=== PATIENT | male | born 1980 | race Hispanic/Latino ===

== ENCOUNTER 2019-07-26 19:56 | Emergency (ER) | payer SELFPAY ==
[2019-07-26 21:00] LABS: Urine Blood 1+ (NEG); Urine Glucose NEGATIVE (NEG); Urine Protein 2+ (NEG); Urine Specific Gravity 1.025 (1.005-1.030)
[2019-07-26 21:05] LABS: Urine Bacteria 20-50 /HPF (NONE SEEN); Urine Culture Reflex Order REFLEXED; Urine Mucus 1+ /HPF (NONE SEEN); Urine RBC 20-50 /HPF (NONE SEEN)
[2019-07-26] MEDS ORDERED: CEFTRIAXONE 250 MG/VIAL ONE (21:39)
[2019-07-26] MEDS ORDERED: AZITHROMYCIN 250 MG TAB ONE (21:39)
[2019-07-26] MEDS ORDERED: WATER FOR INJ,STERILE 10 ML ONE (21:40)
--- NOTE | 2019-07-26 21:54 | ER ---
Nurse's Notes [facility] Name: Liam Snell Age: 39 yrs Sex: Male : 1980 Arrival Date: 07/26/2019 Time: 19:58 Bed 27 Private MD: Diagnosis: Urinary tract infection, site not specified Presentation: 07/26 20:09 Presenting complaint: Patient states: Since last night, pain with urination, swelling lp1 to side of penis;. Transition of care: patient was not received from another setting of care. Onset of symptoms was July 26, 2019. Risk Assessment: Do you want to hurt yourself or someone else? Patient reports no desire to harm self or others. Initial Sepsis Screen: Does the patient meet any 2 criteria? No. Patient's initial sepsis screen is negative. Does the patient have a suspected source of infection? No. Patient's initial sepsis screen is negative. Care prior to arrival: None. 20:09 Method Of Arrival: Ambulatory lp1 20:09 Acuity: AGUSTÍN 4 lp1 Historical: - Allergies: 20:12 No Known Allergies; lp1 - Home Meds: 20:12 [place] Oral [Active]; Soma Oral [Active]; lp1 - PMHx: 20:12 "esophagus problems"; Depression; Back pain; lp1 - PSHx: 20:12 wrist surgery; lp1 - Immunization history:: Adult Immunizations up to date. - Social history:: Smoking status: Patient uses tobacco products, smokes one-half pack cigarettes per day. - Ebola Screening: : No symptoms or risks identified at this time. Screenin:37 Abuse screen: Denies threats or abuse. Nutritional screening: No deficits noted. sr5 Tuberculosis screening: No symptoms or risk factors identified. Fall Risk None identified. Assessment: 20:37 General: Appears in no apparent distress. Behavior is calm, cooperative. Pain: sr5 Complains of pain in groin. Neuro: No deficits noted. Cardiovascular: No deficits noted. Respiratory: No deficits noted. GI: No deficits noted. : Reports burning with urination, discharge, red and raised area to right testicle, reports started today. EENT: No signs and/or symptoms were reported regarding the EENT system. Derm:. Musculoskeletal: No signs and/or symptoms reported regarding the musculoskeletal system. 21:40 Reassessment: Pt to ultrasound approx 2130. sr5 22:37 Reassessment: Upon discharge pt remains AA\\T\\Ox4, equal unlabored resp, skin warm/dry/nc, sr5 steady gait out of ER with family. Vital Signs: 20:12 BP 120 / 86; Pulse 98; Resp 18; Temp 98.1(O); Pulse Ox 100% on R/A; Weight 81.65 kg lp1 (R); Height 5 ft. 7 in. (170.18 cm); Pain 9/10; 22:37 BP 118 / 70; Pulse 87; Resp 18; Temp 98.1; Pulse Ox 100% on R/A; Pain 9/10; sr5 20:12 Body Mass Index 28.19 (81.65 kg, 170.18 cm) lp1 ED Course: 19:58 Patient arrived in ED. cl3 20:11 Triage completed. lp1 20:11 Arm band placed on. lp1 20:34 ReseckerAlex RN is Primary Nurse. sr5 20:37 Patient has correct armband on for positive identification. Bed in low position. Call sr5 light in reach. 20:44 Quin Benitez FNP-C is [facility]. kb 20:44 Shaun Ramirez MD is Attending Physician. kb 22:14 US Scrotum Testicles In Process Unspecified. EDMS 22:37 No provider procedures requiring assistance completed. Patient did not have IV access sr5 during this emergency room visit. Administered Medications: 22:06 Drug: Zithromax 1 grams Route: PO; sr5 22:38 Follow up: Response: No adverse reaction sr5 22:07 Drug: Rocephin (cefTRIAXone) 250 mg Route: IM; Site: right ventrogluteal; sr5 22:38 Follow up: Response: No adverse reaction sr5 Outcome: 21:53 Discharge ordered by . kb 22:37 Discharged to home ambulatory, with friend. sr5 22:37 Condition: good 22:37 Discharge instructions given to patient, family, Instructed on discharge instructions, follow up and referral plans. medication usage, Demonstrated understanding of instructions, follow-up care, medications, Prescriptions given X 1. 22:39 Patient left the ED. sr5 Signatures: Dispatcher [employer] EDMS Quin Benitez FNP-C FNP-Ckb Pena, Laura RN RN lp1 Alex Maki, RN RN sr5 Bryn Cueto cl3
--- NOTE | 2019-07-26 21:55 | EDPHYS ---
Physician Documentation [facility] Name: Liam Snell Age: 39 yrs Sex: Male : 1980 Arrival Date: 07/26/2019 Time: 19:58 Bed 27 Private MD: ED Physician Shaun Ramirez HPI: 07/26 21:41 This 39 yrs old Male presents to ER via Ambulatory with complaints of Penile kb Pain. 21:41 The patient presents with symptoms include dysuria, purulent penile discharge, swollen kb lymph nodes in the area of the right inguinal area. Onset: The symptoms/episode began/occurred yesterday. Modifying factors: The symptoms are alleviated by nothing, the symptoms are aggravated by urinating. Associated signs and symptoms: Pertinent positives: dysuria. Severity of symptoms: At their worst the symptoms were moderate, in the emergency department the symptoms are unchanged. The patient has not experienced similar symptoms in the past. The patient has not recently seen a physician. Historical: - Allergies: 20:12 No Known Allergies; lp1 - Home Meds: 20:12 [place] Oral [Active]; Soma Oral [Active]; lp1 - PMHx: 20:12 "esophagus problems"; Depression; Back pain; lp1 - PSHx: 20:12 wrist surgery; lp1 - Immunization history:: Adult Immunizations up to date. - Social history:: Smoking status: Patient uses tobacco products, smokes one-half pack cigarettes per day. - Ebola Screening: : No symptoms or risks identified at this time. ROS: 21:34 Constitutional: Negative for fever, chills, and weight loss, ENT: Negative for injury, kb pain, and discharge, Neck: Negative for injury, pain, and swelling, Cardiovascular: Negative for chest pain, palpitations, and edema, Respiratory: Negative for shortness of breath, cough, wheezing, and pleuritic chest pain, Abdomen/GI: Negative for abdominal pain, nausea, vomiting, diarrhea, and constipation, Back: Negative for injury and pain, MS/Extremity: Negative for injury and deformity, Skin: Negative for injury, rash, and discoloration, Neuro: Negative for headache, weakness, numbness, tingling, and seizure. 21:34 : Positive for urinary symptoms, burning with urination, penile discharge. Exam: 21:34 Constitutional: This is a well developed, well nourished patient who is awake, alert, kb and in no acute distress. Head/Face: Normocephalic, atraumatic. ENT: Nares patent. No nasal discharge, no septal abnormalities noted. Tympanic membranes are normal and external auditory canals are clear. Oropharynx with no redness, swelling, or masses, exudates, or evidence of obstruction, uvula midline. Mucous membranes moist. Neck: Trachea midline, no thyromegaly or masses palpated, and no cervical lymphadenopathy. Supple, full range of motion without nuchal rigidity, or vertebral point tenderness. No Meningismus. Chest/axilla: Normal chest wall appearance and motion. Nontender with no deformity. No lesions are appreciated. Cardiovascular: Regular rate and rhythm with a normal S1 and S2. No gallops, murmurs, or rubs. Normal PMI, no JVD. No pulse deficits. Respiratory: Lungs have equal breath sounds bilaterally, clear to auscultation and percussion. No rales, rhonchi or wheezes noted. No increased work of breathing, no retractions or nasal flaring. Abdomen/GI: Soft, non-tender, with normal bowel sounds. No distension or tympany. No guarding or rebound. No evidence of tenderness throughout. Back: No spinal tenderness. No costovertebral tenderness. Full range of motion. Skin: Warm, dry with normal turgor. Normal color with no rashes, no lesions, and no evidence of cellulitis. MS/ Extremity: Pulses equal, no cyanosis. Neurovascular intact. Full, normal range of motion. Neuro: Awake and alert, GCS 15, oriented to person, place, time, and situation. Cranial nerves II-XII grossly intact. Motor strength 5/5 in all extremities. Sensory grossly intact. Cerebellar exam normal. Normal gait. 21:34 : Male external genitalia: erythema, of the right testicle is seen, that is mild, area of induration to right testicle. Vital Signs: 20:12 BP 120 / 86; Pulse 98; Resp 18; Temp 98.1(O); Pulse Ox 100% on R/A; Weight 81.65 kg lp1 (R); Height 5 ft. 7 in. (170.18 cm); Pain 9/10; 22:37 BP 118 / 70; Pulse 87; Resp 18; Temp 98.1; Pulse Ox 100% on R/A; Pain 9/10; sr5 20:12 Body Mass Index 28.19 (81.65 kg, 170.18 cm) lp1 MDM: 20:44 Patient medically screened. kb 21:40 Data reviewed: vital signs, nurses notes. Data interpreted: Pulse oximetry: on room air kb is 100 %. Interpretation: normal. Counseling: I had a detailed discussion with the patient and/or guardian regarding: the historical points, exam findings, and any diagnostic results supporting the discharge/admit diagnosis, lab results, radiology results, the need for outpatient follow up, a family practitioner, to return to the emergency department if symptoms worsen or persist or if there are any questions or concerns that arise at home. 07/26 20:44 Order name: Urine Microscopic Only; Complete Time: 21:06 ar5 07/26 20:44 Order name: Urine Culture ar5 07/26 20:45 Order name: Urine Dipstick--Ancillary (enter results); Complete Time: 21:01 ar5 07/26 21:01 Order name: US Scrotum Testicles kb Administered Medications: 22:06 Drug: Zithromax 1 grams Route: PO; sr5 22:38 Follow up: Response: No adverse reaction sr5 22:07 Drug: Rocephin (cefTRIAXone) 250 mg Route: IM; Site: right ventrogluteal; sr5 22:38 Follow up: Response: No adverse reaction sr5 Disposition: 07/27 05:48 Co-signature as Attending Physician, Shaun Ramirez MD I agree with the assessment and aylin plan of care. Disposition: 07/26/19 21:53 Discharged to Home. Impression: Urinary tract infection, site not specified. - Condition is Stable. - Discharge Instructions: Sexually Transmitted Disease, Zplt-ax-Ybrh, Urinary Tract Infection, Adult, Qegy-fj-Dgve. - Prescriptions for Doxycycline Hyclate 100 mg Oral Tablet - take 1 tablet by ORAL route every 12 hours; 20 tablet. - Medication Reconciliation Form, Thank You Letter, Antibiotic Education, Prescription Opioid Use form. - Follow up: Emergency Department; When: As needed; Reason: Worsening of condition. Follow up: Private Physician; When: 2 - 3 days; Reason: Recheck today's complaints, Continuance of care, Re-evaluation by your physician. Signatures: Dispatcher [employer] Deon Johnsonistin, BARGEMAN-C BARGEMAN-Shaun Larson MD MD cha Pena, Laura, RN RN lp1 Alex Maki RN RN sr5 Corrections: (The following items were deleted from the chart) 07/26 22:39 21:53 07/26/2019 21:53 Discharged to Home. Impression: Urinary tract infection, site sr5 not specified. Condition is Stable. Discharge Instructions: Sexually Transmitted Disease, Vnkr-pr-Ypwb, Urinary Tract Infection, Adult, Hayo-yw-Ktuk. Prescriptions for Doxycycline Hyclate 100 mg Oral Tablet - take 1 tablet by ORAL route every 12 hours; 20 tablet. and Forms are Medication Reconciliation Form, Thank You Letter, Antibiotic Education, Prescription Opioid Use. Follow up: Emergency Department; When: As needed; Reason: Worsening of condition. Follow up: Private Physician; When: 2 - 3 days; Reason: Recheck today's complaints, Continuance of care, Re-evaluation by your physician. kb
[2019-07-26 22:56] VITALS: TEMP 98.1; O2SAT 100
[2019-07-26 22:57] VITALS: BP 118/70
--- NOTE | 2019-07-27 08:04 | RAD REPORT ---
EXAM DESCRIPTION: US - Scrotum Testicles - 07/26/2019 10:14 pm CLINICAL HISTORY: Scrotal pain, possible abscess Preliminary findings provided at the time of the study. COMPARISON: None. FINDINGS: Testicular tissue is homogeneous and demonstrates normal blood flow on Doppler evaluation. No focal testicular mass. No significant epididymis finding. Scrotal wall thickening and edema are noted. No abscess or focal collection in the scrotal wall. IMPRESSION: Scrotal wall thickening and edema. No abscess or focal fluid collection. No testicle abnormality.
== END 2019-07-26 22:39 | disposition home or self-care (01) ==
LOC: ER 19:56
DX: N39.0 Urinary tract infection, site not specified (principal); F32.9 Major depressive disorder, single episode, unspecified; F17.210 Nicotine dependence, cigarettes, uncomplicated
CPT/HCPCS: 76870; 81003; 81015; 87086; 87088; 96372; 99283; J0696

== ENCOUNTER 2023-04-28 19:46 | Inpatient (IN) | payer OTHER, SELFPAY ==
[2023-04-28 20:54] LABS: Absolute Lymphocytes (CBC) 1.6 K/uL (0.7-4.9); Hematocrit 41.6 % (39.6-49.0); MCV 94.5 fL (80-100); MPV 8.7 fL (7.6-11.3); Platelets 233 thou/uL (152-406); RBC Red Blood Cell Count 4.41 M/uL (4.33-5.43)
[2023-04-28 21:12] LABS: ALT/SGPT 14 U/L (16-61); Albumin 3.4 g/dL (3.4-5.0); Alkaline Phosphatase 43 U/L (45-117); BUN Blood Urea Nitrogen 10 mg/dL (7-18); Bicarbonate 24 mEq/L (21-32); Bilirubin Direct 0.2 mg/dL (0-0.2); Bilirubin Indirect, Calculated 0.3 mg/dL (0.2-0.8); Bilirubin Total 0.5 mg/dL (0.2-1.0); Glomerular Filtration Rate 114 ml/min (=/>90); Glucose Level 131 mg/dL (74-106); Protein, Total 7.8 g/dL (6.4-8.2)
[2023-04-28 21:19] LABS: AST/SGOT < 4 U/L (15-37)
[2023-04-28 21:24] LABS: Potassium 3.8 mEq/L (3.5-5.1); Sodium Level 141 mEq/L (136-145)
[2023-04-28] MEDS ORDERED: NA CHLORIDE 0.9% 1,000 ML ONE ×2 (22:22→23:25)
[2023-04-28] MEDS ORDERED: KETOROLAC 30 MG/ML INJ ONE (22:22)
[2023-04-28] MEDS ORDERED: ONDANSETRON 4 MG/2 ML VIAL ONE (23:25)
[2023-04-28] MEDS ORDERED: MORPHINE 4 MG/ML SYR ONE (23:25)
[2023-04-28] MEDS ORDERED: NA CHLORIDE 0.9% 100 ML ONE (23:26)
[2023-04-28] MEDS ORDERED: PIPERACIL/TAZO 3.375 GM VIAL IV ONE (23:26)
--- NOTE | 2023-04-29 00:27 | EDPHYS ---
Physician Documentation [facility] Name: Liam Snell Age: 43 yrs Sex: Male : 1980 Arrival Date: 04/28/2023 Time: 19:46 Bed 5 Private MD: ED Physician Ever Gonzales HPI: 04/28 20:03 This 43 yrs old Male presents to ER via Unassigned with complaints of Pain All sp4 Over. 20:22 43-year-old male presents with complaint of right-sided scrotal swelling and possible sp4 abscess starting 2 days ago.. Historical: - Allergies: 20:17 No Known Allergies; nj1 - PMHx: 20:17 Depression; Back pain; nj1 - Immunization history:: Client reports having NOT received the Covid vaccine. - Social history:: Smoking status: Patient reports the use of cigarette tobacco products, smokes one-half pack cigarettes per day, Reported history of juuling and/or vaping. - Family history:: not pertinent. ROS: 20:22 Constitutional: Negative for fever, chills, and weight loss, Back: Negative for injury sp4 and pain, : Negative for injury, bleeding, positive right scrotal pain and swelling starting 2 days ago 20:22 All other systems are negative, Exam: 20:22 Constitutional: This is a well developed, well nourished patient who is awake, alert, sp4 and in no acute distress. Head/Face: Normocephalic, atraumatic. Eyes: Pupils equal round and reactive to light, extra-ocular motions intact. Lids and lashes normal. Conjunctiva and sclera are not injected. Cornea within normal limits. Periorbital areas with no swelling, redness, or edema. ENT: Nares patent. No nasal discharge, no septal abnormalities noted. Tympanic membranes are normal and external auditory canals are clear. Oropharynx with no redness, swelling, or masses, exudates, or evidence of obstruction, uvula midline. Mucous membranes moist. Neck: Trachea midline, no thyromegaly or masses palpated, and no cervical lymphadenopathy. Supple, full range of motion without nuchal rigidity, or vertebral point tenderness. Chest/axilla: Normal chest wall appearance and motion. Nontender with no deformity. No lesions are appreciated. Cardiovascular: Regular rate and rhythm with a normal S1 and S2. No gallops, murmurs, or rubs. Normal PMI, no JVD. No pulse deficits. Respiratory: Lungs have equal breath sounds bilaterally, clear to auscultation and percussion. No rales, rhonchi or wheezes noted. No increased work of breathing, no retractions or nasal flaring. Abdomen/GI: Soft, non-tender, with normal bowel sounds. No distension or tympany. No guarding or rebound. No evidence of tenderness throughout. Back: No spinal tenderness. No costovertebral tenderness. Skin: Warm, dry with normal turgor. Normal color with no rashes, no lesions, and no evidence of cellulitis. MS/ Extremity: Pulses equal, no cyanosis. Neurovascular intact. Full, normal range of motion. Neuro: Awake and alert, GCS 15, oriented to person, place, time, and situation. Cranial nerves II-XII grossly intact. Motor strength 5/5 in all extremities. Sensory grossly intact. Psych: Awake, alert, with orientation to person, place and time. Behavior, mood, and affect are within normal limits Vital Signs: 20:14 BP 130 / 82; Pulse 100; Resp 18; Temp 98.1; Pulse Ox 100% ; Weight 90.72 kg; Height 5 nj1 ft. 7 in. ; Pain 10/10; 22:13 BP 128 / 98; Pulse 97; Resp 16; Pulse Ox 100% on R/A; jb4 04/29 01:34 BP 111 / 78; Pulse 78; Resp 17 S; Pulse Ox 100% on R/A; jw7 04/28 20:14 Body Mass Index 31.32 (90.72 kg, 170.18 cm) nj1 04/28 20:14 Pain Scale: Adult nj1 MDM: 04/28 20:04 Patient medically screened. sp4 04/29 00:25 Differential Diagnosis altered mental status, sepsis, flu. Data reviewed: vital signs, sp4 nurses notes, old medical records, lab test result(s), radiologic studies, CT scan. 00:26 Consideration of Admission/Observation Patient was admitted/placed on observation. sp4 Escalation of care including admission/observation considered. Management of patient was discussed with the following: Hospitalist: Admission team. Body Mechanic: Neymar Burgos . ED course: Patient was informed that his abscess is too close to anal sphincter onto complex to drain in the emergency department. General surgeon Dr. Blackmon was consulted for OR abscess drainage. Patient will be admitted to hospitalist. 04/28 20:04 Order name: COVID-19 SARS RT PCR [facility] 04/28 20:04 Order name: Influenza Screen (a \T\ B) [facility] 04/28 20:22 Order name: Basic Metabolic Panel; Complete Time: 22:04 [facility] 04/28 20:22 Order name: CBC with Diff; Complete Time: 22:04 [facility] 04/28 20:22 Order name: LFT's; Complete Time: 22:04 [facility] 04/28 20:22 Order name: Blood Culture Adult (2) [facility] 04/28 20:22 Order name: Lactate w/ 2H reflex if indic.; Complete Time: 22:04 [facility] 04/28 23:45 Order name: Abdomen EDMS 04/28 20:22 Order name: IV Saline Lock; Complete Time: 20:48 [facility] 04/28 20:22 Order name: Labs collected and sent; Complete Time: 20:48 [facility] 04/28 20:22 Order name: O2 Per Protocol; Complete Time: 22:07 [facility] 04/28 20:22 Order name: O2 Sat Monitoring; Complete Time: 22:07 [facility] 04/28 22:18 Order name: NPO; Complete Time: 23:01 sp4 Administered Medications: 04/28 22:12 Drug: NS 0.9% IV 1000 ml IV at 1 bolus Per protocol; 1000 mL bolus Route: IV; Rate: 1 jb4 bolus; Site: right antecubital; 04/29 00:28 Follow up: IV Status: Completed infusion [facility] 04/28 22:12 Drug: Ketorolac IVP 30 mg IVP once Route: IVP; Site: right antecubital; jb4 04/29 00:28 Follow up: Response: No adverse reaction [facility] 04/28 23:25 Drug: Piperacillin-Tazobactam IVPB 3.375 grams IVPB once over 60 mins; (mix in NS 100 cm10 mL) Route: IVPB; Infused Over: 60 mins; Site: right antecubital; 04/29 00:27 Follow up: Response: No adverse reaction; IV Status: Completed infusion; IV Intake: cm10 1000ml 04/28 23:25 Drug: NS 0.9% IV 1000 ml IV at 125 ml/hr continuous Route: IV; Rate: 125 ml/hr; Site: cm10 right antecubital; 04/29 00:29 Follow up: Response: No adverse reaction cm10 01:42 Follow up: IV Status: Infusion continued upon admission jb4 04/28 23:26 Drug: morphine IVP or IV 4 mg IVP once over 4 mins Route: IVP; Infused Over: 4 mins; cm10 Site: right antecubital; 04/29 00:28 Follow up: Response: No adverse reaction cm10 04/28 23:26 Drug: Ondansetron IVP 4 mg IVP once; over 2 minutes Route: IVP; Site: right antecubital;cm10 04/29 00:28 Follow up: Response: No adverse reaction 10 00:42 Drug: Ondansetron IVP 4 mg IVP once; over 2 minutes Route: IVP; Site: right antecubital;10 01:41 Follow up: Response: No adverse reaction 4 00:43 Drug: vancoMYCIN IVPB 1 grams IVPB once over 2 hrs Route: IVPB; Infused Over: 2 hrs; cm10 Site: right antecubital; 01:42 Follow up: Response: No adverse reaction; IV Status: Infusion continued upon admission jb4 00:43 Drug: morphine IVP or IV 4 mg IVP once over 4 mins Route: IVP; Infused Over: 4 mins; cm10 Site: right antecubital; 01:41 Follow up: Response: No adverse reaction jb4 01:32 Drug: Ativan IVP 1 mg IVP once Route: IVP; Site: right antecubital; jb4 01:41 Follow up: Response: No adverse reaction jb4 Disposition Summary: 04/29/23 00:26 Hospitalization Ordered Notes: Hospitalization Status: Inpatient Admission sp4 Provider: Clifford Caldwell Location: Telemetry/[facility]Sur (Inpatient) sp4 Condition: Stable sp4 Problem: new sp4 Symptoms: have improved sp4 Bed/Room Type: Standard sp4 Room Assignment: 224(04/29/23 01:23) cg Diagnosis - Acute right perirectal abscess, cutaneous and subcutaneous abscess sp4 Forms: - Medication Reconciliation Form sp4 - SBAR form sp4 - Leadership Thank You Letter sp4 Signatures: Dispatcher [employer] EDMS Eloina Bhatti, RN RN cg Nikhil Garza RN RN jb4 Breann Marin, RN RN jw7 Ever Gonzales MD MD sp4 Elle Mcguire RN RN nj1 Francine Huff RN RN cm10 Corrections: (The following items were deleted from the chart) 00:26 00:15 Abdomen Pelvis W Con+CT.RAD.BRZ ordered. EDMS EDMS 01:23 00:26 sp4 cg
--- NOTE | 2023-04-29 00:27 | ER ---
Nurse's Notes [facility] Name: Liam Snell Age: 43 yrs Sex: Male : 1980 Arrival Date: 04/28/2023 Time: 19:46 Bed 5 Private MD: Diagnosis: Acute right perirectal abscess, cutaneous and subcutaneous abscess Presentation: 04/28 20:14 Chief complaint: Patient states: Pain in between buttocks, "it is a knot" for a couple nj1 days, getting worse. Pt states he has had issues like this and it is always MRSA and gets admitted. Coronavirus screen: Vaccine status: Patient reports being unvaccinated. Ebola Screen: Patient denies travel to an Ebola-affected area in the 21 days before illness onset. Initial Sepsis Screen: Does the patient meet any 2 criteria? HR > 90 bpm. No. Patient's initial sepsis screen is negative. Does the patient have a suspected source of infection? No. Patient's initial sepsis screen is negative. Risk Assessment: Do you want to hurt yourself or someone else? Patient reports no desire to harm self or others. Onset of symptoms was April 25, 2023. 20:14 Method Of Arrival: Ambulatory [facility] 20:14 Acuity: AGUSTÍN 3 nj1 Historical: - Allergies: 20:17 No Known Allergies; nj1 - PMHx: 20:17 Depression; Back pain; nj1 - Immunization history:: Client reports having NOT received the Covid vaccine. - Social history:: Smoking status: Patient reports the use of cigarette tobacco products, smokes one-half pack cigarettes per day, Reported history of juuling and/or vaping. - Family history:: not pertinent. Screenin/29 01:39 [facility] ED Fall Risk Assessment (Adult) History of falling in the last 3 months, jb4 including since admission No falls in past 3 months (0 pts) Confusion or Disorientation No (0 pts) Intoxicated or Sedated No (0 pts) Impaired Gait No (0 pts) Mobility Assist Device Used No (0 pt) Altered Elimination No (0 pt) Score/Fall Risk Level 0 - 2 = Low Risk Oriented to surroundings, Maintained a safe environment, Hourly rounding (assess needs \\T\\ fall precautionary measures) done. Abuse screen: Denies threats or abuse. Denies injuries from another. Nutritional screening: No deficits noted. Tuberculosis screening: No symptoms or risk factors identified. Assessment: 04/28 22:13 General: Appears in no apparent distress. uncomfortable, Behavior is calm, cooperative. jb4 Pain: Complains of pain in buttocks, generalized body aches. Neuro: Level of Consciousness is awake, alert, obeys commands, Oriented to person, place, time, situation. Cardiovascular: Patient's skin is warm and dry. Respiratory: Airway is patent Respiratory effort is even, unlabored, Respiratory pattern is regular, symmetrical. GI: No signs and/or symptoms were reported involving the gastrointestinal system. : No signs and/or symptoms were reported regarding the genitourinary system. EENT: No signs and/or symptoms were reported regarding the EENT system. Derm: Skin is intact, Skin is pink, warm \\T\\ dry. Musculoskeletal: Circulation, motion, and sensation intact. Range of motion: intact in all extremities. 04/29 00:44 Reassessment: Patient appears in no apparent distress at this time. Patient and/or cm10 family updated on plan of care and expected duration. Pain level reassessed. Patient is alert, oriented x 3, equal unlabored respirations, skin warm/dry/pink. Vital Signs: 04/28 20:14 BP 130 / 82; Pulse 100; Resp 18; Temp 98.1; Pulse Ox 100% ; Weight 90.72 kg; Height 5 nj1 ft. 7 in. ; Pain 10/10; 22:13 BP 128 / 98; Pulse 97; Resp 16; Pulse Ox 100% on R/A; jb4 04/29 01:34 BP 111 / 78; Pulse 78; Resp 17 S; Pulse Ox 100% on R/A; jw7 04/28 20:14 Body Mass Index 31.32 (90.72 kg, 170.18 cm) nj1 04/28 20:14 Pain Scale: Adult nj1 ED Course: 04/28 19:50 Patient arrived in ED. jj6 20:03 Ever Gonzales MD is Attending Physician. sp4 20:17 Triage completed. nj1 20:21 Arm band placed on left wrist. nj1 20:47 Lactate w/ 2H reflex if indic. Sent. bc6 20:48 Blood Culture Adult (2) Sent. bc6 20:48 Basic Metabolic Panel Sent. bc6 20:48 CBC with Diff Sent. bc6 20:48 LFT's Sent. bc6 20:48 Inserted saline lock: 20 gauge in right antecubital area, using aseptic technique. bc6 Blood collected. 23:26 Breann Marin, RN is Primary Nurse. jw7 04/29 00:10 Abdomen In Process Unspecified. EDMS 00:25 Clifford Caldwell MD is Hospitalizing Provider. sp4 01:39 Patient has correct armband on for positive identification. Bed in low position. Call jb4 light in reach. Provided Education on: ER Process and procedures. . 01:40 No provider procedures requiring assistance completed. Patient admitted, IV remains in jb4 place. Administered Medications: 04/28 22:12 Drug: NS 0.9% IV 1000 ml IV at 1 bolus Per protocol; 1000 mL bolus Route: IV; Rate: 1 jb4 bolus; Site: right antecubital; 04/29 00:28 Follow up: IV Status: Completed infusion [facility] 04/28 22:12 Drug: Ketorolac IVP 30 mg IVP once Route: IVP; Site: right antecubital; [facility] 04/29 00:28 Follow up: Response: No adverse reaction [facility] 04/28 23:25 Drug: Piperacillin-Tazobactam IVPB 3.375 grams IVPB once over 60 mins; (mix in NS 100 cm10 mL) Route: IVPB; Infused Over: 60 mins; Site: right antecubital; 04/29 00:27 Follow up: Response: No adverse reaction; IV Status: Completed infusion; IV Intake: cm10 1000ml 04/28 23:25 Drug: NS 0.9% IV 1000 ml IV at 125 ml/hr continuous Route: IV; Rate: 125 ml/hr; Site: cm10 right antecubital; 04/29 00:29 Follow up: Response: No adverse reaction [facility] 01:42 Follow up: IV Status: Infusion continued upon admission [facility] 04/28 23:26 Drug: morphine IVP or IV 4 mg IVP once over 4 mins Route: IVP; Infused Over: 4 mins; cm10 Site: right antecubital; 04/29 00:28 Follow up: Response: No adverse reaction [facility] 04/28 23:26 Drug: Ondansetron IVP 4 mg IVP once; over 2 minutes Route: IVP; Site: right antecubital;cm10 04/29 00:28 Follow up: Response: No adverse reaction cm10 00:42 Drug: Ondansetron IVP 4 mg IVP once; over 2 minutes Route: IVP; Site: right antecubital;cm10 01:41 Follow up: Response: No adverse reaction jb4 00:43 Drug: vancoMYCIN IVPB 1 grams IVPB once over 2 hrs Route: IVPB; Infused Over: 2 hrs; cm10 Site: right antecubital; 01:42 Follow up: Response: No adverse reaction; IV Status: Infusion continued upon admission jb4 00:43 Drug: morphine IVP or IV 4 mg IVP once over 4 mins Route: IVP; Infused Over: 4 mins; cm10 Site: right antecubital; 01:41 Follow up: Response: No adverse reaction jb4 01:32 Drug: Ativan IVP 1 mg IVP once Route: IVP; Site: right antecubital; jb4 01:41 Follow up: Response: No adverse reaction jb4 Medication: 01:40 VIS not applicable for this client. jb4 Intake: 00:27 IV: 1000ml; Total: 1000ml. cm10 Outcome: 00:26 Decision to Hospitalize by Provider. sp4 01:40 Admitted to Med/surg accompanied by nurse, via stretcher, room 224, Report called to belkis Arguello RN 01:40 Condition: good 01:40 Instructed on the need for admit, 01:43 Patient left the ED. 4 Signatures: Dispatcher [employer] EDMS Nikhil Garza RN RN jb4 Dora Thomson jj6 Breann Marin RN RN jw7 Rebecca Gonzalez Sergey, MD MD sp4 Elle Mcguire RN RN nj1 Francine Huff RN RN cm10
[2023-04-29] MEDS ORDERED: ONDANSETRON 4 MG/2 ML VIAL ONE ×2 (00:46→12:08)
[2023-04-29] MEDS ORDERED: VANCOMYCIN 1 GM/VIAL ONE (00:46)
[2023-04-29] MEDS ORDERED: MORPHINE 4 MG/ML SYR ONE (00:46)
[2023-04-29] MEDS ORDERED: NA CHLORIDE 0.9% 250 ML ONE (00:47)
[2023-04-29] MEDS ORDERED: LORazepam 2 MG/ML VIAL ONE (01:42)
[2023-04-29] MEDS ORDERED: ONDANSETRON 4 MG/2 ML VIAL IV PRN (02:00)
[2023-04-29] MEDS ORDERED: NICOTINE 14 MG/PAT TD PRN (02:00)
--- NOTE | 2023-04-29 02:15 | P.HP ---
Certification for Inpatient Patient admitted to: Inpatient With expected LOS: >2 Midnights Patient will require the following post-hospital care: None Practitioner: I am a practitioner with admitting privileges, knowledge of patient current condition, hospital course, and medical plan of care. Services: Services provided to patient in accordance with Admission requirements found in Title 42 Section 412.3 of the Code of Federal Regulations <Shaun Navarrete - Last Filed: 04/29/23 02:13> Patient History Date of Service: 04/29/23 Reason for admission: Gluteal abscess History of Present Illness: 43-year-old male with history of chronic back pain presents the emergency department with chief complaint of suspected perianal abscess. He reports having multiple perianal abscesses in the past treated at other facilities. He was evaluated here in the emergency department his labs are significant for white blood cell count 11.4 glucose [address] abdomen pelvis with IV contrast was performed which revealed left superficial medial gluteal abscess with no evidence of extension of the perineum or intraperitoneal extension. ED provider wishes to admit for evaluation from general surgery. Patient reports history of MRSA infections. - Past Medical/Surgical History Diabetic: No -: Chronic back pain -: Incision and drainage for gluteal/perianal abscess Psychosocial/ Personal History: Unemployed, lives at home with family - Family History Family History: Reviewed- Non-Contributory - Social History Smoking Status: Current every day smoker Counseled patient to stop smoking for: less than 10 minutes Smoking therapy provided: Yes Alcohol use: Yes CD- Drugs: Yes Caffeine use: Yes Place of Residence: Home <Shaun Navarrete - Last Filed: 04/29/23 02:13> Date of Service: 04/29/23 <Clifford Caldwell - Last Filed: 04/29/23 21:32> Allergies No Known Allergies Allergy (Unverified 09/10/12 23:59) Home Medications: Ciprofloxacin HCl [Cipro] 500 mg PO Q12H #10 tablet 09/14/12 Citalopram Hydrobromide [Celexa] 20 mg PO DAILY #30 tablet 09/14/12 Hydrocodone/Acetaminophen [Lorcet 10-650 Tablet] 1 each PO Q8HP PRN #30 tablet 09/14/12 Metoclopramide HCl [Reglan] 10 mg PO ACHS #120 tablet 09/14/12 Promethazine HCl [Phenergan] 25 mg PO Q6HP PRN #30 tablet 09/14/12 Ranitidine HCl 300 mg PO DAILY #30 capsule 09/14/12 Review of Systems 10-point ROS is otherwise unremarkable Integumentary: As per HPI (Gluteal pain, abscess) <Shaun Navarrete - Last Filed: 04/29/23 02:13> Physical Examination - Vital Signs Temperature: 96.7 F Blood Pressure: 131/79 Pulse: 84 Respirations: 18 Pulse Ox (%): 100 - Physical Exam General: Alert, In no apparent distress, Oriented x3 HEENT: Atraumatic, PERRLA, Mucous membr. moist/pink, EOMI, Sclerae nonicteric Neck: Supple, 2+ carotid pulse no bruit, No LAD, Without JVD or thyroid abnormality Respiratory: Clear to auscultation bilaterally, Normal air movement Cardiovascular: Regular rate/rhythm, Normal S1 S2 Capillary refill: <2 Seconds Gastrointestinal: Normal bowel sounds, No tenderness Musculoskeletal: No tenderness Integumentary: Other (Gluteal abscess left medial area) Neurological: Normal speech, Normal strength at 5/5 x4 extr, Normal tone, Normal affect - Studies Laboratory Data (last 24 hrs) 04/28/23 04/28/23 20:45 20:45 WBC 11.40 H Hgb 14.7 Hct 41.6 Plt Count 233 Sodium 141 Potassium 3.8 BUN 10 Creatinine 0.77 Glucose 131 H Total Bilirubin 0.5 AST < 4 L ALT 14 L Alkaline Phosphatase 43 L <Shaun Navarrete - Last Filed: 04/29/23 02:13> Assessment and Plan - Plan Assessment: Left gluteal abscess Chronic back pain Plan: Left gluteal abscess N.p.o., IVF, IV antibiotics, general surgery consult. Patient reports multiple similar abscess in the past with MRSA. Continue vancomycin. Chronic back pain Continue home medications. DVT PPX: SCD Code status: Full Discharge Plan: Home Plan to discharge in: 48 Hours - Advance Directives Does patient have a Living Will: No Does patient have a Durable POA for Healthcare: No - Code Status/Comfort Care Code Status Assessed: Yes (Full code) Critical Care: No Time Spent Managing Pts Care (In Minutes): 55 <Shaun Navarrete - Last Filed: 04/29/23 02:13> - Plan Patient seen and examined on rounds this morning with Dr. Blackmon Continues with buttock pain NPO for surgery today antibiotics, pain medication <Clifford Caldwell - Last Filed: 04/29/23 21:32>
[2023-04-29] MEDS: NA CHLORIDE 0.9% 1,000 ML IV SCH ×3 (02:16→22:00)
[2023-04-29] MEDS ORDERED: VANCOMYCIN 750 MG in NA CHLORIDE 0.9% 250 ML IVPB ONE (03:00)
[2023-04-29 03:03] VITALS: BMI 31.8
[2023-04-29 03:55] LABS: Absolute Lymphocytes (CBC) 1.7 K/uL (0.7-4.9); Hematocrit 35.5 % (39.6-49.0); Lymphocytes % 15.6 % (15.3-44.8); MCV 94.4 fL (80-100); MPV 8.6 fL (7.6-11.3); Platelets 217 thou/uL (152-406); RBC Red Blood Cell Count 3.76 M/uL (4.33-5.43)
[2023-04-29] MEDS: MORPHINE 4 MG/ML SYR IV PRN ×2 (05:21→09:06)
--- NOTE | 2023-04-29 07:25 | P.PN ---
Date of Service: 04/30/23 Subjective: Feeling better today no acute events overnight afebrile ROS: 10 point ROS as noted above, otherwise negative Physical Exam: GEN: Alert, oriented, NAD HEENT: Normal conjunctiva, sclera anicteric CV: Regular rate and rhythm, no edema Pulm: Nonlabored respirations on room air, clear bilaterally ABD: Soft, nontender, nondistended Integumentary: surgical dressing in place Neuro: Normal speech, normal affect vitals reviewed Problem List: Perirectal abscess with fistula, now s/p I&D (04/29) h/o MRSA Chronic back pain Nicotine dependence Polysubstance use Perirectal abscess with fistula, now s/p I&D (04/29) h/o MRSA Patient reports multiple similar abscess in the past with MRSA. CT abdomen (04/28): left superficial medial gluteal abscess. mild fecal stasis. mild fatty infiltration of liver blood cx (04/28): NGTD wound cx (04/29): pending; 1+ GNR on stain General Surgery - Dr. Blackmon consulted s/p I&D of perirectal abscess with fistula (04/29) Continue flagyl / vanc (04/29-) dc IV fluids PRN antiemetics, PRN pain medication local wound care per Dr. Blackmon follow cultures Chronic back pain Continue home medications. Nicotine dependence Polysubstance use reports recreational use of weed/cocaine counseled on cessation. Nicoderm patch ordered. VTE: SCD Code: Full Dispo: Home, likely tomorrow Pending further improvement / culture results
[2023-04-29 07:40] LABS: Urine Bacteria None Seen /HPF (<20); Urine Bilirubin NEGATIVE (Negative); Urine Blood Negative (Negative); Urine Clarity Clear (Clear); Urine Color Yellow (Yellow); Urine Glucose NEGATIVE (Negative); Urine Mucus Slight /HPF (None Seen); Urine Protein TRACE (Negative); Urine RBC <5 /HPF (None Seen); Urine Urobilinogen 1+ (Normal)
[2023-04-29 07:44] LABS: Specific Gravity > 1.030 (1.005-1.030)
[2023-04-29] MEDS ORDERED: CEFEPIME 1 GM in NA CHLORIDE 0.9% 100 ML IV SCH (09:00)
[2023-04-29] MEDS ORDERED: VANCOMYCIN 1 GM in NA CHLORIDE 0.9% 250 ML IVPB SCH (09:00)
[2023-04-29] MEDS: METRONIDAZOLE 500mg IVPB 500 MG/100 ML BAG IV SCH ×2 (09:06→18:32)
[2023-04-29] MEDS: HYDROMORPHONE HCL 1 MG/ML INJ IV PRN ×2 (10:40→16:18)
[2023-04-29] MEDS ORDERED: propofoL 200 MG/20 ML VIAL IV ONE (12:07)
[2023-04-29] MEDS ORDERED: Ringers Lactate 1,000 ML IV ONE (12:07)
[2023-04-29] MEDS ORDERED: FENTANYL CITR 100 MCG/2 ML ONE (12:07)
[2023-04-29] MEDS ORDERED: MIDAZOLAM HCL 2 MG/2 ML INJ ONE (12:07)
[2023-04-29] MEDS ORDERED: LIDOCAINE 2% MPF 5 ML VIAL ONE (12:08)
[2023-04-29] MEDS ORDERED: METHYLENE BLUE 1% 10 ML VIAL ONE (12:43)
[2023-04-29] MEDS ORDERED: LIDOCAINE HCL/EPINEPHRINE 20 ML MDV ONE (12:43)
[2023-04-29] MEDS ORDERED: KETOROLAC 30 MG/ML INJ ONE (12:57)
[2023-04-29] MEDS ORDERED: dexAMETHasone 4 MG/ML VIAL ONE (13:01)
--- NOTE | 2023-04-29 13:15 | P.OP ---
Preoperative diagnosis: Perirectal abscess with fistula Postoperative diagnosis: Perirectal abscess with fistula Primary procedure: Exam under anesthesia Secondary procedure: Incision and Drainage of perirectal abscess - RIGHT lateral Other procedure(s): Placement of Seton Anesthesia: GETA + Local Estimated blood loss: <5cc Specimen: cultures Findings: Perirectal abscess with fistula Complications: None Drain(s): Other (seton) Transferred to: Recovery Room Condition: Good
[2023-04-29] MEDS: VANCOMYCIN 1.75 GM in NA CHLORIDE 0.9% 500 ML IVPB SCH (14:37)
--- NOTE | 2023-04-29 15:17 | OP ---
Date of Procedure: 04/29/2023 Surgeon: Jhonatan Blackmon MD, Preoperative Diagnosis: Perirectal abscess with fistula. Postoperative Diagnosis: Perirectal abscess with fistula. Procedures Performed: 1.Exam under anesthesia. 2.Incision and drainage of perirectal abscess to the right lateral buttock perianal region. 3.Placement of a seton. Anesthesia: General endotracheal plus local with 0.25% Marcaine. Estimated Blood Loss: Less than 5 cc. Specimen: Cultures. Findings: A perirectal abscess with fistula, which tracked anterior to midline from right lateral as pect. Complications: None. Drains/implant: Seton red rubber vessel loop. Patient was transferred to recovery room in good cond ition. Procedure In Detail: After informed consent was obtained, patient was brought to the operating room, prepped and draped in the usual sterile fashion. After adequate anesthesia was achieved, patient re mained in lithotomy position. I anesthetized an area overlying the right obvious abscess of the righ t gluteal region of the perianal skin to the right of midline. I then injected methylene blue into t his area. An abscess and methylene blue were emanating from an anterior area just outside of the den canal. Abscess material was draining from here along with methylene blue. At this point, an anosc ope was placed. No additional blue dye was appreciated coming up from any other sources. At this po int, I returned my attention back to the perianal abscess and incised the perirectal abscess at this point at the subcutaneous tissues for approximately 2 cm. Abscess material was encountered. This wa s sent for aerobic and anaerobic speciation via cultures. At this point, the area was copiously irri gated. I placed a lacrimal probe and passed a seton through this at this point, which was a red rubb er vessel loop and secured it with an 0 silk suture in interrupted fashion across the seton. At this point, the area was copiously irrigated once again. The entire tract was cleaned at this point. I placed a Gel-Foam, hydrated appropriately into the anal canal for hemostasis and I then packed the wo und with Vashe soaked plain packing and a sterile dressing placed over top. Patient tolerated the pr ocedure well without evidence of complication and transferred to PACU in good condition. All counts were correct at the end of the case. KATIA/AURE Voice ID: [id number] Report ID: [id number]
--- NOTE | 2023-04-29 17:34 | RAD REPORT ---
EXAM DESCRIPTION: CT - Abdomen Pelvis W Contrast - 04/29/2023 5:52 am ADDENDUM #1 Addendum: Upon further review of the images there is a superficial subcutaneous tissue/skin medial left cheek g luteal region fluid collection measuring 2.6 x 1.9 x 2.1 cm on axial image 99 and coronal image 60 co rresponding to a small abscess. Minimal haziness surrounding the right gluteal region correspond to m ost likely cellulitis/inflammation. There is no evidence for gas. There is no evidence for significan t involvement within the perineum. There is no evidence for significant extension to the levator ani. Testicles and scrotal sac demonstrate to be unremarkable. Subclinical with fatty hilum enhancing ing uinal lymph nodes most likely reactive in nature. IMPRESSION: Left superficial medial gluteal abscess. No evidence for extension of the perineum/or in traperitoneal extension. Mild fecal stasis. Mild fatty infiltration of the liver. Electronically signed by: Marty Solo MD 04/29/2023 1:05 AM CDT End of Addendum EXAM DESCRIPTION: Abdomen Pelvis W Contrast 04/29/2023 12:34 AM CDT CLINICAL HISTORY: 43 years, Male, rectal and buttocks pain COMPARISON: None. TECHNIQUE: Contrast-enhanced images of the abdomen and pelvis were performed utilizing 5 mm slice th ickness at 5 mm interval reconstruction from the lung bases to the ischial tuberosities after the adm inistration of IV contrast. In addition multiplanar reformats in the coronal and sagittal plane were obtained and reviewed. This exam was performed according to our departmental dose-optimization protocol, which includes auto mated exposure control, adjustment of the mA and/or kV according to patient size and/or use of iterat herminia reconstruction technique. FINDINGS: Lung bases: The lung bases demonstrate minimal compressive atelectatic changes. Liver: The liver demonstrate decreased attenuation corresponding to mild fatty infiltration. Gallbladder: The gallbladder demonstrate to be within normal limits. No evidence for biliary duct dil atation. Pancreas: The pancreas demonstrate to be within normal limits. Spleen: The spleen demonstrate to be within normal limits. Adrenal gland: The adrenal glands demonstrate to be normal. Kidneys: The kidneys demonstrate normal uptake of contrast media. There is no evidence for nephrolith iasis and/or hydronephrosis. GI: Grossly the unopacified stomach, small bowel and large bowel demonstrate to be within normal limi ts. There is no evidence for bowel dilatation/or free air. The appendix is normal. There is mild fecal stasis. The left site colon is unremarkable. Urinary bladder: The urinary bladder demonstrate to be within normal limits. The prostate gland demonstrate to be within normal limits. Abdominal aorta: The abdominal aorta demonstrate to be within normal limits. Retroperitoneum: There is no retroperitoneal lymphadenopathy. There is no evidence for ascites/or abn ormal fluid collections. Bones: The bone windows demonstrate to be within normal limits. There is minimal degenerative changes at L5/S1. Soft tissues: The soft tissues demonstrate to be within normal limits. IMPRESSION: Mild fecal stasis. Mild fatty infiltration of the liver. Electronically signed by: Marty Solo MD 04/29/2023 12:39 AM CDT Due to temporary technical issues with the PACS/Fluency reporting system, reports are being signed by the in house radiologists without review as a courtesy to insure prompt reporting. The interpreting radiologist is fully responsible for the content of the report.
[2023-04-29] MEDS: HYDROCODONE/APAP 5/325 MG TAB PO PRN (20:36)
[2023-04-30] MEDS: METRONIDAZOLE 500mg IVPB 500 MG/100 ML BAG IV SCH ×3 (01:09→16:31)
[2023-04-30] MEDS: VANCOMYCIN 1.75 GM in NA CHLORIDE 0.9% 500 ML IVPB SCH ×2 (02:54→13:20)
[2023-04-30 03:42] LABS: Hematocrit 36.1 % (39.6-49.0); Lymphocytes % 7.9 % (15.3-44.8); MCV 94.6 fL (80-100); MPV 9.2 fL (7.6-11.3); Platelets 241 thou/uL (152-406); RBC Red Blood Cell Count 3.82 M/uL (4.33-5.43)
[2023-04-30 03:50] LABS: Potassium 3.5 mEq/L (3.5-5.1)
[2023-04-30] MEDS: HYDROMORPHONE HCL 1 MG/ML INJ IV PRN (07:34)
[2023-04-30] MEDS ORDERED: POTASSIUM CL SA 10 MEQ TAB PO ONE (08:00)
[2023-04-30] MEDS: NA CHLORIDE 0.9% 1,000 ML IV SCH (09:12)
[2023-04-30] MEDS: HYDROCODONE/APAP 5/325 MG TAB PO PRN ×2 (13:19→19:17)
[2023-04-30] MEDS: CIPROFLOXACIN HCL 500 MG TAB PO SCH (21:19)
[2023-04-30] MEDS: ZOLPIDEM TARTRATE 10 MG TABLET PO PRN (22:23)
[2023-05-01] MEDS: METRONIDAZOLE 500mg IVPB 500 MG/100 ML BAG IV SCH ×3 (00:09→17:20)
[2023-05-01] MEDS: VANCOMYCIN 1.75 GM in NA CHLORIDE 0.9% 500 ML IVPB SCH ×2 (01:12→14:25)
[2023-05-01] MEDS: HYDROCODONE/APAP 5/325 MG TAB PO PRN ×3 (01:14→17:24)
[2023-05-01 05:11] LABS: Absolute Lymphocytes (CBC) 2.6 K/uL (0.7-4.9); Hematocrit 35.7 % (39.6-49.0); Lymphocytes % 37.6 % (15.3-44.8); Platelets 262 thou/uL (152-406); RBC Red Blood Cell Count 3.72 M/uL (4.33-5.43)
[2023-05-01 05:24] LABS: Magnesium 2.3 mg/dL (1.6-2.4); Potassium 4.1 mEq/L (3.5-5.1)
--- NOTE | 2023-05-01 07:24 | P.PN ---
Date of Service: 05/01/23 Subjective: Feeling better today no new / worsening problems afebrile no BM yet ROS: 10 point ROS as noted above, otherwise negative Physical Exam: GEN: Alert, oriented, NAD HEENT: Normal conjunctiva, sclera anicteric CV: Regular rate and rhythm, no edema Pulm: Nonlabored respirations on room air, clear bilaterally ABD: Soft, nontender, nondistended Integumentary: surgical dressing in place Neuro: Normal speech, normal affect vitals reviewed Problem List: Perirectal abscess with fistula, now s/p I&D (04/29) h/o MRSA Chronic back pain Nicotine dependence Polysubstance use Perirectal abscess with fistula, now s/p I&D (04/29) h/o MRSA Patient reports multiple similar abscess in the past with MRSA. CT abdomen (04/28): left superficial medial gluteal abscess. mild fecal stasis. mild fatty infiltration of liver blood cx (04/28): NGTD wound cx (04/29): pending; 1+ GNR on stain General Surgery - Dr. Blackmon consulted s/p I&D of perirectal abscess with fistula (04/29) Continue flagyl / cipro / vanc (04/29-) dc IV fluids PRN antiemetics, PRN pain medication local wound care per Dr. Blackmon follow cultures Chronic back pain Continue home medications. Nicotine dependence Polysubstance use reports recreational use of weed/cocaine counseled on cessation. Nicoderm patch ordered. VTE: SCD Code: Full Dispo: Home with HH, ~1 day Pending further improvement; able to have BM ss/cm consulted
[2023-05-01] MEDS: CIPROFLOXACIN HCL 500 MG TAB PO SCH ×2 (07:48→19:48)
[2023-05-01 09:55] VITALS: O2SAT 99
--- NOTE | 2023-05-01 13:18 | CON ---
Date of Consultation: 05/01/2023 Brief History Of Present Illness: The patient is a 43-year-old male with a history of chronic back p ain and a previous perirectal abscess, who complains of suspected perirectal abscess. He has had it before in the past and has been treated at other facility including placement of rubber drain into it he states, but he denies seton placement. He states that he has had antibiotic pack performed on mu ltiple occasions in the past and it may keep recurring. His last time was at [facility], he believes. He recently noted that there was significant swelling, tenderness, and pain in the perirectal area, once again similar to his previous episodes and as such he came into the emergency room with the above-st ated complaints. Past Medical History: Significant for chronic back pain. Past Surgical History: Includes incision and drainage of multiple gluteal and perirectal and periana l abscesses. Jaw fracture repair. Social History: He has a positive every day 20+ pack-year history of tobacco usage and currently smo kes a pack per day. He drinks alcohol socially. He also uses cocaine recreationally and marijuana, last time was over a week ago he states by his recollection. He is currently unemployed and lives at home with his family. Allergies: NO KNOWN DRUG ALLERGIES. Home Medications: Include Cipro, Celexa, Lorcet, Reglan, Phenergan, ranitidine. Review of Systems: A 10-point review of systems other than HPI, denies. Physical Examination: Vital Signs: At the time of my examination; his temperature 96.7, blood pressure 131/79, pulse 84, r espiratory rate 18, SpO2 100% on room air. General: He is awake, alert, oriented. Psychiatric: Appropriate, conversive. HEENT: He is normocephalic. Sclerae anicteric. Mucous membranes are moist. Oropharynx is clear. Neck: Supple without JVD Chest: Expansion and excursion. Cardiovascular: Regular rate and rhythm. Pulmonary: Clear to auscultation bilaterally. Abdomen: Soft, nontender, nondistended. No rebound. No guarding. No focal peritonitis. Extremities: No clubbing, cyanosis, or edema. Rectal: Focused examination and rectal examination shows a perirectal abscess with tense perirectal abscess. The patient unable to tolerate rectal examination during my exam as well. He has a large e xternal anal skin tags consistent with sentinel piles. Laboratory Data: Revealed a white blood cell count of 12.8, hemoglobin was 12.7, hematocrit 36.1, pl atelet count was 241, neutrophils 86%. His sodium 140, potassium 3.5, chloride 110, carbon dioxide 2 5, BUN 7, creatinine 0.7, glucose is 113, calcium 8.5. He had a CT scan of the abdomen and pelvis of ficially read as left superficial medial gluteal abscess. No evidence for extension in the perineum or intraperitoneal extension. Mild fecal stasis, mild fatty infiltration of the liver. Specifically , there was a 2.6 x 1.9 x 2.1 cm left gluteal cheek abscess appreciated in the perineal region. Assessment And Plan: This is a 43-year-old male, who comes in with signs and symptoms of perirectal abscess, possible fistula. 1.IV fluid hydration. 2.Antibiotic coverage. 3.Medical management. 4.Drug cessation. I have discussed this with Dr. Caldwell, who will be addressing with the patient as well. 5.Smoking cessation. 6.I have explained risks, benefits, and alternatives of incision, drainage and possible placement of a seton of this perirectal abscess, possible fistula including, but not limited to bleeding, infecti on, damage to surrounding tissues, need for further operation and procedures, incontinence, and other issues related to the skin and ongoing wound care. The patient displayed understanding of the above stated plan and agreed to proceed as indicated. Thank you for this interesting consult. KATIA/AURE Voice ID: [id number] Report ID: [id number]
[2023-05-01] MEDS: ZOLPIDEM TARTRATE 10 MG TABLET PO PRN (19:50)
[2023-05-02] MEDS: METRONIDAZOLE 500mg IVPB 500 MG/100 ML BAG IV SCH ×2 (00:25→08:07)
[2023-05-02] MEDS: VANCOMYCIN 1.75 GM in NA CHLORIDE 0.9% 500 ML IVPB SCH (01:31)
[2023-05-02 05:33] VITALS: BP 165/79; TEMP 98
[2023-05-02] MEDS: HYDROCODONE/APAP 5/325 MG TAB PO PRN (08:07)
[2023-05-02] MEDS: CIPROFLOXACIN HCL 500 MG TAB PO SCH (08:08)
[2023-05-02] MEDS ORDERED: NA CHLORIDE 0.9% 100 ML ONE (08:25)
--- NOTE | 2023-05-02 09:04 | P.DS ---
Admission Date: 04/29/23 Discharge Date: 05/02/23 Disposition: ROUTINE DISCHARGE Discharge Condition: GOOD Reason for Admission: Gluteal abscess Consultations: General surgery - Dr. Blackmon Brief History of Present Illness: 43-yo M, PMH: chronic back pain Patient presents the emergency department with chief complaint of suspected perianal abscess. He reports having multiple perianal abscesses in the past treated at other facilities. He was evaluated here in the emergency department his labs are significant for white blood cell count 11.4 glucose [address] abdomen pelvis with IV contrast was performed which revealed left superficial medial gluteal abscess with no evidence of extension of the perineum or intraperitoneal extension. ED provider wishes to admit for evaluation from general surgery. Patient reports history of MRSA infections. Hospital Course: Problem List: Perirectal abscess with fistula, now s/p I&D (04/29) h/o MRSA Chronic back pain Nicotine dependence Polysubstance use Patient presented with perirectal pain. He was found to have a perirectal abscess on CT. He was taken to the OR on 04/[address] Blackmon noted/confirmed perirectal abscess with fistual. Performed successful I&D and packing. General surgery was consulted. Patient underwent successful I&D on 04/[address] Blackmon. Patient was given empiric Flagyl / Vancomycin given his history of MRSA. Patient remained afebrile throughout hospitalization. Blood cultures without growth since 04/28. Wound culture taken from surgery preliminary seen to be growing gram negative rods. No GPC. Patient is to complete 7 days of levaquin and flagyl on discharge for a total of ~10 days of antibiotic therapy. Patient was feeling better, remained afebrile, pain improved and deemed stable for discharge. Recommend close follow up with PCP and Dr. Blackmon within 1 week. Medications: Levaquin and flagyl [place] - Pain medication prescription was sent. Noted to be taking chronic pain medication so there is a possibility of prescription being flagged / denied. Follow up: PCP 3-[address] Blackmon in 1 week Local wound care per Dr. Blackmon: Sitz baths three times a day, remove all packings with sitz baths, then repack damp to dry with Vashe and 1/2 inch plain packing Physical Exam: GEN: Alert, oriented, NAD HEENT: Normal conjunctiva, sclera anicteric CV: Regular rate and rhythm, no edema Pulm: Nonlabored respirations on room air, clear bilaterally ABD: Soft, nontender, nondistended Integumentary: surgical dressing in place Neuro: Normal speech, normal affect Vital Signs/Physical Exam: Temp Pulse Resp BP Pulse Ox 98.0 F 96 H 16 165/79 H 98 05/02/23 04:00 05/02/23 04:00 05/02/23 04:00 05/02/23 04:00 05/02/23 04:00 Laboratory Data at Discharge: WBC 6.90 thou/uL (4.3-10.9) 05/01/23 04:24 Hgb 12.6 g/dL (13.6-17.9) L 05/01/23 04:24 Hct 35.7 % (39.6-49.0) L 05/01/23 04:24 Plt Count 262 thou/uL (152-406) 05/01/23 04:24 Sodium 141 mEq/L (136-145) 05/01/23 04:24 Potassium 4.1 mEq/L (3.5-5.1) D 05/01/23 04:24 BUN 7 mg/dL (7-18) 05/01/23 04:24 Creatinine 0.76 mg/dL (0.70-1.30) 05/01/23 04:24 Glucose 133 mg/dL (74-106) H 05/01/23 04:24 Magnesium 2.3 mg/dL (1.6-2.4) 05/01/23 04:24 Total Bilirubin 0.5 mg/dL (0.2-1.0) 04/28/23 20:45 AST < 4 U/L (15-37) L 04/28/23 20:45 ALT 14 U/L (16-61) L 04/28/23 20:45 Alkaline Phosphatase 43 U/L (45-117) L 04/28/23 20:45 Home Medications: Carisoprodol [Soma] 1 tab PO TID 05/01/23 Zolpidem Tartrate 1 tab PO BEDTIME PRN 05/01/23 Hydrocodone/Acetaminophen [Hydrocodon-Acetaminoph 7.5-325] 1 tab PO Q6H PRN 6 Days #24 tab 05/02/23 levoFLOXacin [Levofloxacin] 1 tab PO DAILY 7 Days #7 tab 05/02/23 metroNIDAZOLE [Metronidazole] 1 tab PO Q8H 7 Days #21 tab 05/02/23 New Medications: Hydrocodone/Acetaminophen [Hydrocodon-Acetaminoph 7.5-325] 1 tab PO Q6H PRN 6 Days #24 tab PRN Reason: Pain Scale 5-7 (Moderate) levoFLOXacin [Levofloxacin] 1 tab PO DAILY 7 Days #7 tab metroNIDAZOLE [Metronidazole] 1 tab PO Q8H 7 Days #21 tab Physician Discharge Instructions: Patient presented with perirectal pain. He was found to have a perirectal abscess on CT. He was taken to the OR on 04/[address] Blackmon noted/confirmed perirectal abscess with fistual. Performed successful I&D and packing. General surgery was consulted. Patient underwent successful I&D on 04/[address] Blackmon. Patient was given empiric Flagyl / Vancomycin given his history of MRSA. Patient remained afebrile throughout hospitalization. Blood cultures without growth since 04/28. Wound culture taken from surgery preliminary seen to be growing gram negative rods. No GPC. Patient is to complete 7 days of levaquin and flagyl on discharge for a total of ~10 days of antibiotic therapy. Patient was feeling better, remained afebrile, pain improved and deemed stable for discharge. Recommend close follow up with PCP and Dr. Blackmon within 1 week. Medications: Levaquin and flagyl [place] - Pain medication prescription was sent. Noted to be taking chronic pain medication so there is a possibility of prescription being flagged / denied. Follow up: PCP 3-[address] Blackmon in 1 week Local wound care per Dr. Blackmon: Sitz baths three times a day, remove all packings with sitz baths, then repack damp to dry with Vashe and 1/2 inch plain packing Followup: Marcela Kothari DO, DO [Primary Care Provider] - Time spent managing pt's care (in minutes): 45
== END 2023-05-02 10:56 | disposition home health service (06) | DRG 331 ==
LOC: ER 19:46 → 2ND 04-29 01:15
PROVIDERS: ADMIT Hospitalist; ATTEND Hospitalist
PROC: 0J990ZZ Drainage of Buttock Subcutaneous Tissue and Fascia, Open Approach (ICD-10-PCS; 2023-04-29)
PROC: 0DQP0ZZ Repair Rectum, Open Approach (ICD-10-PCS; principal; 2023-04-29 15:45)
DX: K61.1 Rectal abscess (principal); G89.29 Other chronic pain; M54.9 Dorsalgia, unspecified; K76.0 Fatty (change of) liver, not elsewhere classified; F17.210 Nicotine dependence, cigarettes, uncomplicated; Z56.0 Unemployment, unspecified; Z71.51 Drug abuse counseling and surveillance of drug abuser; Z86.14 Personal history of Methicillin resistant Staphylococcus aureus infection; Z28.310 Unvaccinated for COVID-19; Z79.899 Other long term (current) drug therapy
CPT/HCPCS: 36415; 74177; 80048; 80076; 80202; 81001; 83605; 83735; 85025; 87040; 87070; 87075; 87077; 87186; 87205; 96361; 96365; 96367; 96375; 99285; J1100; J1170; J2001; J2250; J2405; J2543; J2704; J3010; J7030; J7040; J7050; J7120; Q9967